=== PATIENT | male | born 1955 | race Caucasian/White ===

== ENCOUNTER 2016-07-08 21:35 | Emergency (ER) | payer MEDICARE, OTHER ==
[2016-07-08 21:52] VITALS: O2SAT 97
--- NOTE | 2016-07-08 22:41 | C.PDOC ---
History Of Present Illness A 61 y/o male presents to the ER c/o aching pain and swelling of the bilateral knees but does not know for how long. Pt notes his knees swells up and hurts for him to walk. Pt tried wearing knee braces but says it is tight and cuts off the circulation of his knees. Pt reports being in pain management and is taking pain medications for a herniated disk in his neck and back. Pt notes the swelling of his knees are there throughout the day with the pain is not getting much better when waking up in the morning. Pt denies fever, chills, weakness, numbness, trauma, nausea, vomiting, or any other complaints. Time Seen by Provider: 07/08/16 21:43 Chief Complaint (Nursing): Lower Extremity Problem/Injury History Per: Patient History/Exam Limitations: no limitations Onset/Duration Of Symptoms: Unknown Current Symptoms Are (Timing): Still Present Severity: Mild Recent travel outside of the [place]: No Additional History Per: Patient Past Medical History Reviewed: Historical Data, Nursing Documentation, Vital Signs Vital Signs: Last Vital Signs Temp 98.9 F 07/08/16 21:48 Pulse 96 H 07/08/16 21:48 Resp 16 07/08/16 21:48 BP 136/89 07/08/16 21:48 Pulse Ox 97 07/08/16 23:02 - Medical History PMH: Asthma, HTN, Peripheral Edema Family History: States: Unknown Family Hx - Social History Hx Alcohol Use: No Hx Substance Use: No - Immunization History Hx Tetanus Toxoid Vaccination: Yes Hx Influenza Vaccination: No Hx Pneumococcal Vaccination: No Review Of Systems Except As Marked, All Systems Reviewed And Found Negative. Constitutional: Negative for: Fever, Chills, Other (Injury. Fall) Gastrointestinal: Negative for: Nausea, Vomiting Musculoskeletal: Positive for: Leg Pain (Bilateral knee pain and swelling) Neurological: Negative for: Weakness, Numbness Physical Exam - Physical Exam Appears: Non-toxic, No Acute Distress Skin: Warm, Dry Head: Atraumatic, Normacephalic Eye(s): bilateral: Normal Inspection, EOMI Cardiovascular: Rhythm Regular, No Murmur Respiratory: Normal Breath Sounds, No Accessory Muscle Use, No Rales, No Rhonchi , No Wheezing Extremity: Normal ROM, Pedal Edema (Pretibial edema), Capillary Refill (<2secs) , No Deformity, Swelling (Mild swelling) Extremity: Bilateral: Normal Color And Temperature, Normal ROM Pulses: Left Dorsalis Pedis: Normal, Right Dorsalis Pedis: Normal Neurological/Psych: Oriented x3, Normal Speech, Normal Cognition, Normal Motor, Normal Sensation, Other (No focal deficit) Gait: Steady ED Course And Treatment - Laboratory Results Result Diagrams: 07/08/16 22:52 07/08/16 22:52 Lab Interpretation: No Acute Changes O2 Sat by Pulse Oximetry: 97 (RA) Pulse Ox Interpretation: Normal Reevaluation Time: 23:20 Reassessment Condition: Unchanged Medical Decision Making Medical Decision Making: Impression: 61 y/o c/o bilateral knee pain for an unknown durations Plans: -Blood labs -Reassess and disposition Pt is in no acute distress and is resting comfortably. Pt was instructed to follow up with PMD of symptoms persist. Disposition Counseled Patient/Family Regarding: Studies Performed, Diagnosis, Need For Followup, Rx Given - Disposition Referrals: Guerda Blevins MD [Staff Provider] - Disposition: HOME/ ROUTINE Disposition Time: 23:20 Condition: STABLE Prescriptions: Hydrochlorothiazide [Microzide] 12.5 mg PO DAILY #30 cap Instructions: Leg Edema (ED) - Clinical Impression Clinical Impression: Peripheral edema, Joint pain - Scribe Statement The provider has reviewed the documentation as recorded by the Scribe Erica zurita All medical record entries made by the Scribe were at my direction and personally dictated by me. I have reviewed the chart and agree that the record accurately reflects my personal performance of the history, physical exam, medical decision making, and the department course for this patient. I have also personally directed, reviewed, and agree with the discharge instructions and disposition.
[2016-07-08 22:56] LABS: BASO # 0.1 K/uL (0.0-0.2); BASO % 0.9 % (0.0-2.0); EOS # 0.1 K/uL (0.0-0.7); EOS % 1.7 % (0.0-4.0); HEMATOCRIT 41.3 % (35.0-51.0); LYMPH % 33.3 % (20.0-40.0); MEAN CELL VOLUME 87.3 fL (80.0-94.0); MEAN CORPUSCULAR HEMOGLOBIN 29.5 pg (27.0-31.0); MEAN CORPUSCULAR HGB CONC 33.7 g/dL (33.0-37.0); MEAN PLATELET VOLUME 7.1 fL (7.2-11.7); MONO # 0.5 K/uL (0.0-0.8); MONO % 8.2 % (0.0-10.0); NRBC % 0.1 % (0.0-2.0); RED CELL DISTRIBUTION WIDTH 13.6 % (11.5-14.5); WHITE BLOOD COUNT 5.9 K/uL (4.8-10.8)
[2016-07-08 23:04] LABS: CHLORIDE 100 mmol/L (98-107); SODIUM 137 mmol/L (132-148)
[2016-07-08 23:05] LABS: POTASSIUM 5.6 mmol/L (3.6-5.2)
[2016-07-08 23:06] LABS: BILIRUBIN,TOTAL 1.5 mg/dL (0.2-1.3); GFR AFRICAN-AMERICAN > 60
[2016-07-08 23:07] LABS: ALB/GLOB RATIO 1.1 (1.0-2.1); ALKALINE PHOSPHATASE 39 U/L (38-126); ALT/SGPT 23 U/L (21-72); AST/SGOT 43 U/L (17-59); BLOOD UREA NITROGEN 18 mg/dL (9-20); CARBON DIOXIDE 26 mmol/L (22-30); GLUCOSE,RANDOM 95 mg/dL (75-110); TOTAL PROTEIN 8.1 g/dL (6.3-8.3)
[2016-07-08 23:08] LABS: CALCIUM 8.9 mg/dl (8.6-10.4)
[2016-07-08 23:32] VITALS: BP 129/86; PULSE 88; RESP 18; TEMP 98.3
== END 2016-07-08 23:32 | disposition home or self-care (01) ==
LOC: C.ER 21:35
DX: R60.0 Localized edema (principal); M25.562 Pain in left knee; M25.561 Pain in right knee

== ENCOUNTER 2017-03-18 16:38 | Inpatient (IN) | payer MEDICARE ==
[2017-03-18 17:27] VITALS: BMI 32.8
[2017-03-18] MEDS ORDERED: Sodium Chloride 0.9% 1,000 ML IV ONE ×2 (18:51→21:19)
[2017-03-18] MEDS ORDERED: Piperacillin/Tazobact 3.375 gm 100 ML IV STA (18:52)
[2017-03-18] MEDS ORDERED: MethylPREDNISolone 40 mg Vial IVP STA (18:53)
--- NOTE | 2017-03-18 19:10 | C.PDOC ---
History Of Present Illness 62 y/o male, with history of diabetes, presents to the ER complaining of mild pain and swelling in the right eye which has been gradually developing over the past 2 days. Patient states that the pain started after he rubbed his eyes with dirty hands. Patient denies having any headache, fever, dizziness, blurry vision , foreign body sensation, and contact lenses. Time Seen by Provider: 03/18/17 18:41 Chief Complaint (Nursing): ENT Problem History Per: Patient History/Exam Limitations: no limitations Onset/Duration Of Symptoms: Days Current Symptoms Are (Timing): Still Present Severity: Moderate Past Medical History Reviewed: Historical Data, Nursing Documentation, Vital Signs Vital Signs: Last Vital Signs Temp 99 F 03/18/17 20:25 Pulse 78 03/18/17 20:25 Resp 18 03/18/17 20:25 BP 158/101 H 03/18/17 20:25 Pulse Ox 99 03/18/17 20:25 - Medical History PMH: Asthma, HTN, Peripheral Edema Surgical History: No Surg Hx Family History: States: No Known Family Hx - Social History Hx Alcohol Use: No Hx Substance Use: No - Immunization History Hx Tetanus Toxoid Vaccination: Yes Hx Influenza Vaccination: No Hx Pneumococcal Vaccination: No Review Of Systems Except As Marked, All Systems Reviewed And Found Negative. Constitutional: Negative for: Fever, Chills Eyes: Positive for: Pain (right eye pain). Negative for: Vision Change Respiratory: Negative for: Cough Neurological: Negative for: Headache, Dizziness Physical Exam - Physical Exam Appears: Non-toxic, No Acute Distress Skin: Normal Color, Warm Head: Normacephalic Eye(s): bilateral: PERRL, EOMI (no pain or limitation on extraocular movement), right: Other (mild conjunctival injection, scant yellow discharge, diffuse periorbital edema and erythema) Nose: No Flaring, No Discharge Oral Mucosa: Moist, No Drooling Tongue: Normal Appearing Lips: Normal Appearing Throat: No Erythema, No Drooling Neck: Trachea Midline, Supple Chest: Symmetrical Cardiovascular: Rhythm Regular Respiratory: No Decreased Breath Sounds, No Accessory Muscle Use, No Rales, No Rhonchi, No Stridor, No Wheezing Gastrointestinal/Abdominal: Soft, No Tenderness Extremity: Normal ROM, No Pedal Edema, No Deformity Neurological/Psych: Oriented x3, Normal Speech, Normal Cognition, Normal Motor, Normal Sensation ED Course And Treatment - Laboratory Results Result Diagrams: 03/18/17 19:22 03/18/17 19:22 Lab Interpretation: No Acute Changes O2 Sat by Pulse Oximetry: 97 (RA) Pulse Ox Interpretation: Normal Progress Note: Case discussed with and admission recommend. Case dsicussed with DR. Blevins and admission arranged. CT orbit request now. OPht consult requested and order with . Results review nad discussed with pt, agrees with plan. Disposition - Disposition Disposition: HOSPITALIZED Disposition Time: 20:02 Condition: STABLE Forms: [employer] ([place]ish) - Clinical Impression Clinical Impression: Periorbital cellulitis of right eye, Facial cellulitis - PA / SENIOR STRATEGY ANALYST / Resident Statement MD/DO has reviewed & agrees with the documentation as recorded. - Scribe Statement The provider has reviewed the documentation as recorded by the Scribe Leonor Cuadra Provider Attestation All medical record entries made by the Scribe were at my direction and personally dictated by me. I have reviewed the chart and agree that the record accurately reflects my personal performance of the history, physical exam, medical decision making, and the department course for this patient. I have also personally directed, reviewed, and agree with the discharge instructions and disposition.
[2017-03-18] MEDS ORDERED: Sodium Chloride 0.9% 1,000 ML ONE ×2 (19:11→21:25)
[2017-03-18] MEDS ORDERED: MethylPREDNISolone 40 mg Vial ONE (19:11)
[2017-03-18 19:27] LABS: BASO % 0.4 % (0.0-2.0); EOS % 0.6 % (0.0-4.0); LYMPH # 1.4 K/uL (1.0-4.3); LYMPH % 16.5 % (20.0-40.0); MEAN CELL VOLUME 86.7 fL (80.0-94.0); MEAN CORPUSCULAR HEMOGLOBIN 29.5 pg (27.0-31.0); MEAN PLATELET VOLUME 7.5 fL (7.2-11.7); MONO # 0.9 K/uL (0.0-0.8); MONO % 10.2 % (0.0-10.0); NEUT % 72.3 % (50.0-75.0); NRBC % 0.1 % (0.0-2.0); RBC 5.08 Mil/uL (4.40-5.90); RED CELL DISTRIBUTION WIDTH 13.4 % (11.5-14.5); WHITE BLOOD COUNT 8.3 K/uL (4.8-10.8)
[2017-03-18 19:40] LABS: BLOOD UREA NITROGEN 13 mg/dL (9-20); CALCIUM 8.9 mg/dl (8.6-10.4); GFR AFRICAN-AMERICAN > 60; GFR NON-AFRICAN AMERICAN > 60
[2017-03-18] MEDS ORDERED: Tobramycin/Dexamethasone OPHT OINT OD STA (21:17)
[2017-03-18] MEDS ORDERED: Tobramycin 0.3% OPH OINT ONE (21:25)
--- NOTE | 2017-03-18 22:26 | CT ---
EXAM: CT Orbits Without Intravenous Contrast CLINICAL HISTORY: 62 years old, male; Condition or disease; Cellulitis; Eye; Right; Additional info: Right eye pain, swleling TECHNIQUE: Axial computed tomography images of the orbits without intravenous contrast. All CT scans at this facility use one or more dose reduction techniques, viz.: automated exposure control; ma/kV adjustment per patient size (including targeted exams where dose is matched to indication; i.e. head); or iterative reconstruction technique. Coronal and sagittal reformatted images were created and reviewed. COMPARISON: No relevant prior studies available. FINDINGS: Limitations: Limited evaluation for abscess due to lack of intravenous contrast. Orbits: Unremarkable as visualized. Sinuses: Scattered mild mucosal thickening. No air-fluid levels. Bones/joints: Degenerative changes of cervical spine. No acute fracture. Postsurgical changes of right facial bones. Soft tissues: RIGHT periorbital/maxillary soft tissue swelling. Dermal calcifications. Dental: Dental caries. IMPRESSION: 1. Findings compatible with cellulitis. 2. Incidental/non-acute findings are described above.
[2017-03-19 01:44] VITALS: RESP 20
[2017-03-19] MEDS ORDERED: oxyCODONE 30 mg Immediate Release Tab PO PRN (06:31)
[2017-03-19] MEDS: Tobramycin 0.3% OPHT SOLN OD SCH ×2 (09:55→17:48)
[2017-03-19] MEDS ORDERED: Home Med 1 UNIT (Oxycodone Hcl/Acetaminophen [Percocet 10-325 Mg Tablet] 1 EACH) PO SCH (10:00)
--- NOTE | 2017-03-19 11:02 | CP.PCM.HP ---
History of Present Illness - History of Present Illness History of Present Illness: r eye swalen closed hurts Present on Admission - Present on Admission Any Indicators Present on Admission: Yes Review of Systems - Review of Systems Systems not reviewed;Unavailable: Acuity of Condition - Constitutional Constitutional: As Per HPI - EENT Eyes: Blurred Vision, Discharge, Itchy Eyes, Pain, Other Ears: As Per HPI Nose/Mouth/Throat: As Per HPI - Gastrointestinal Gastrointestinal: As Per HPI - Genitourinary Genitourinary: As Per HPI - Reproductive: Male Reproductive:Male: As Per HPI - Musculoskeletal Musculoskeletal: Back Pain - Integumentary Integumentary: As Per HPI - Neurological Neurological: As Per HPI - Psychiatric Psychiatric: As Per HPI - Endocrine Endocrine: As Per HPI - Hematologic/Lymphatic Hematologic: As Per HPI Past Patient History - Past Social History Smoking Status: Light Smoker < 10 Cigarettes Daily - CARDIAC Hx Hypertension: Yes Hx Peripheral Edema: Yes - PULMONARY Hx Asthma: Yes - ENDOCRINE/METABOLIC Hx Diabetes Mellitus Type 2: Yes - PSYCHIATRIC Hx Substance Use: No - SURGICAL HISTORY Hx Surgeries: No - ANESTHESIA Hx Anesthesia: No Meds Allergies/Adverse Reactions: Allergies Allergy/AdvReac Type Severity Reaction Status Date / Time No Known Allergies Allergy Verified 03/18/17 17:25 Physical Exam - Constitutional Appears: Non-toxic, In Acute Distress - Head Exam Head Exam: ATRAUMATIC - Eye Exam Eye Exam: Conjunctival injection Additional comments: swalen and closed r eyelid - ENT Exam ENT Exam: Mucous Membranes Dry - Neck Exam Neck exam: Positive for: Full Rom - Respiratory Exam Respiratory Exam: Clear to Auscultation Bilateral - Cardiovascular Exam Cardiovascular Exam: REGULAR RHYTHM - GI/Abdominal Exam GI & Abdominal Exam: Normal Bowel Sounds - Rectal Exam Rectal Exam: NORMAL INSPECTION - Exam Exam: NORMAL INSPECTION - Extremities Exam Extremities exam: Positive for: normal inspection - Back Exam Back exam: NORMAL INSPECTION - Neurological Exam Neurological exam: Normal Gait, Oriented x3 - Psychiatric Exam Psychiatric exam: Normal Affect - Skin Skin Exam: Normal Color Results - Vital Signs Recent Vital Signs: Last Vital Signs Temp 97.9 F 03/19/17 07:51 Pulse 78 03/19/17 07:51 Resp 20 03/19/17 07:51 BP 138/88 03/19/17 07:51 Pulse Ox 97 03/19/17 07:51 - Labs Result Diagrams: 03/18/17 19:22 03/18/17 19:22 Labs: Laboratory Results - last 24 hr 03/18/17 03/18/17 03/18/17 18:49 19:22 19:22 WBC 8.3 RBC 5.08 Hgb 15.0 Hct 44.0 MCV 86.7 MCH 29.5 MCHC 34.0 RDW 13.4 Plt Count 272 MPV 7.5 Neut % (Auto) 72.3 Lymph % (Auto) 16.5 L [place] % (Auto) 10.2 H Eos % (Auto) 0.6 Baso % (Auto) 0.4 Neut # 6.0 Lymph # 1.4 [place] # 0.9 H Eos # 0.0 Baso # 0.0 Sodium 130 L Potassium 4.0 Chloride 92 L Carbon Dioxide 31 H Anion Gap 11 BUN 13 Creatinine 1.0 Est GFR ( Amer) > 60 Est GFR (Non-Af Amer) > 60 POC Glucose (mg/dL) 90 Random Glucose 96 Calcium 8.9 03/19/17 07:06 WBC RBC Hgb Hct MCV MCH MCHC RDW Plt Count MPV Neut % (Auto) Lymph % (Auto) [place] % (Auto) Eos % (Auto) Baso % (Auto) Neut # Lymph # [place] # Eos # Baso # Sodium Potassium Chloride Carbon Dioxide Anion Gap BUN Creatinine Est GFR ( Amer) Est GFR (Non-Af Amer) POC Glucose (mg/dL) 133 H Random Glucose Calcium Assessment & Plan - Assessment and Plan (Free Text) Assessment: acute infection r eye back pain Plan: as per orders - Date & Time Date: 03/19/17 Time: 11:04
[2017-03-19 12:18] LABS: BASO # 0.1 K/uL (0.0-0.2); BASO % 0.4 % (0.0-2.0); HEMOGLOBIN 14.9 g/dL (12.0-18.0); MEAN CELL VOLUME 87.6 fL (80.0-94.0); MEAN CORPUSCULAR HEMOGLOBIN 30.2 pg (27.0-31.0); MEAN CORPUSCULAR HGB CONC 34.5 g/dL (33.0-37.0); MEAN PLATELET VOLUME 7.8 fL (7.2-11.7); MONO # 0.6 K/uL (0.0-0.8); MONO % 4.1 % (0.0-10.0); NEUT % 88.5 % (50.0-75.0); PLATELET COUNT 280 K/uL (130-400); RBC 4.94 Mil/uL (4.40-5.90); RED CELL DISTRIBUTION WIDTH 13.4 % (11.5-14.5)
[2017-03-19] MEDS: Piperacillin/Tazobact 3.375 GM in Sodium Chloride 0.9% 100 ML IVPB SCH ×2 (12:23→17:52)
[2017-03-19 12:27] LABS: WHITE BLOOD COUNT 14.7 K/uL (4.8-10.8)
[2017-03-19 12:54] LABS: BLOOD UREA NITROGEN 17 mg/dL (9-20); CALCIUM 9.4 mg/dl (8.6-10.4); GFR AFRICAN-AMERICAN > 60; GFR NON-AFRICAN AMERICAN > 60
[2017-03-19 13:40] LABS: BANDS 2 % (0-2); LYMPHOCYTE 8 % (20-40); MONOCYTE 3 % (0-10); NEUTROPHIL 87 % (50-75); PLATELET ESTIMATE NORMAL (NORMAL); TOTAL CELLS COUNTED 100
[2017-03-20] MEDS: Piperacillin/Tazobact 3.375 GM in Sodium Chloride 0.9% 100 ML IVPB SCH ×3 (00:15→11:33)
[2017-03-20 08:24] LABS: BASO % 0.4 % (0.0-2.0); EOS % 0.1 % (0.0-4.0); HEMOGLOBIN 13.6 g/dL (12.0-18.0); LYMPH # 2.1 K/uL (1.0-4.3); MEAN CELL VOLUME 88.1 fL (80.0-94.0); MEAN CORPUSCULAR HEMOGLOBIN 30.3 pg (27.0-31.0); MEAN CORPUSCULAR HGB CONC 34.3 g/dL (33.0-37.0); MEAN PLATELET VOLUME 7.6 fL (7.2-11.7); MONO # 0.7 K/uL (0.0-0.8); MONO % 5.9 % (0.0-10.0); NEUT # 8.4 K/uL (1.8-7.0); NEUT % 74.6 % (50.0-75.0); RBC 4.49 Mil/uL (4.40-5.90); RED CELL DISTRIBUTION WIDTH 13.5 % (11.5-14.5); WHITE BLOOD COUNT 11.3 K/uL (4.8-10.8)
[2017-03-20] MEDS: Tobramycin 0.3% OPHT SOLN OD SCH ×2 (09:30→17:52)
--- NOTE | 2017-03-20 12:39 | CP.PCM.PN ---
Subjective - Date & Time of Evaluation Date of Evaluation: 03/20/17 Time of Evaluation: 12:36 - Subjective Subjective: swelling of eyelid is beterwbc still high has celullitis of the eye Objective - Vital Signs/Intake and Output Vital Signs (last 24 hours): Temp Pulse Resp BP Pulse Ox 97.8 F 79 20 146/102 H 98 03/20/17 08:45 03/20/17 08:45 03/20/17 08:45 03/20/17 08:45 03/20/17 08:45 Intake and Output: 03/20/17 03/20/17 06:59 18:59 Intake Total 500 440 Balance 500 440 - Medications Medications: Current Medications Alprazolam (Xanax) 0.5 mg PO TID PRN PRN Reason: Anxiety Last Admin: 03/20/17 09:29 Dose: 0.5 mg Clonidine HCl (Catapres) 0.3 mg PO BID [facility] Last Admin: 03/20/17 09:28 Dose: 0.3 mg Clopidogrel Bisulfate (Plavix) 75 mg PO DAILY [facility] Last Admin: 03/20/17 09:29 Dose: 75 mg Heparin Sodium (Porcine) (Heparin) 5,000 units SC Q12 [facility] Last Admin: 03/20/17 09:29 Dose: 5,000 units Hydrochlorothiazide (Microzide) 12.5 mg PO DAILY [facility] Last Admin: 03/20/17 09:29 Dose: 12.5 mg Piperacillin Sod/Tazobactam (Sod 3.375 gm/ Sodium Chloride) 100 mls @ 100 mls/ hr IVPB Q6H [facility] Stop: 03/20/17 15:00 Last Admin: 03/20/17 11:33 Dose: 100 mls/hr Piperacillin Sod/Tazobactam Sod (Zosyn 3.375 Gm Iv Premix) 3.375 gm in 50 mls @ 100 mls/hr IVPB Q6H [facility] Metformin HCl (Glucophage) 500 mg PO BID [facility] Last Admin: 03/20/17 09:29 Dose: 500 mg Oxycodone HCl (Oxycodone Immediate Release Tab) 30 mg PO Q8 PRN PRN Reason: Pain, moderate (4-7) Pneumococcal Polyvalent Vaccine (Pneumovax 23 Vaccine) 0.5 ml IM .ONCE ONE Stop: 03/21/17 10:01 Tobramycin Sulfate (Tobrex 0.3% Ophth Soln) 1 drop OD BID [facility] Last Admin: 03/20/17 09:30 Dose: 1 drop - Labs Labs: 03/20/17 08:06 03/19/17 12:03 - Constitutional Appears: Non-toxic - Head Exam Head Exam: NORMAL INSPECTION - Eye Exam Eye Exam: Conjunctival injection, Periorbital swelling - Neck Exam Neck Exam: Normal Inspection - Respiratory Exam Respiratory Exam: Clear to Ausculation Bilateral - Cardiovascular Exam Cardiovascular Exam: REGULAR RHYTHM - GI/Abdominal Exam GI & Abdominal Exam: Normal Bowel Sounds - Rectal Exam Rectal Exam: NORMAL INSPECTION - Extremities Exam Extremities Exam: Normal Capillary Refill - Neurological Exam Neurological Exam: Normal Gait - Psychiatric Exam Psychiatric exam: Normal Mood - Skin Skin Exam: Dry, Normal Color Assessment and Plan - Assessment and Plan (Free Text) Assessment: acute celulitis back pain djdd Plan: cont iv antibiotic and all ordres
[2017-03-20] MEDS: Piperacill/Tazo 3.375gm in Dex 3.375 GM/50 ML BAG IVPB SCH (17:54)
[2017-03-21] MEDS: Piperacill/Tazo 3.375gm in Dex 3.375 GM/50 ML BAG IVPB SCH ×3 (00:26→12:05)
[2017-03-21] MEDS: Tobramycin 0.3% OPHT SOLN OD SCH (09:21)
[2017-03-21] MEDS ORDERED: Pneumococcal 23-Valent Vaccine IM ONE (10:00)
[2017-03-21] MEDS ORDERED: Influenza Vaccine 60 mcg/0.5 mL SYR (4YR UP) IM ONE (10:00)
[2017-03-21 15:46] VITALS: BP 120/79; PULSE 65; TEMP 97.5; O2SAT 98
--- NOTE | 2017-03-21 17:36 | CP.PCM.PN ---
Subjective - Date & Time of Evaluation Date of Evaluation: 03/21/17 Time of Evaluation: 09:00 - Subjective Subjective: Alert, orientedx3, decreased orbital swelling and pain, NAD. Objective - Vital Signs/Intake and Output Vital Signs (last 24 hours): Temp Pulse Resp BP Pulse Ox 97.5 F L 65 20 120/79 98 03/21/17 15:00 03/21/17 15:00 03/21/17 15:00 03/21/17 15:00 03/21/17 15:00 Intake and Output: 03/21/17 03/21/17 06:59 18:59 Intake Total 790 850 Balance 790 850 - Labs Labs: 03/20/17 08:06 03/19/17 12:03 Assessment and Plan - Assessment and Plan (Free Text) Assessment: Patient is seen and examined. Alert and orientedx3, right orbital swelling reduced much. Denies any pain. Discussed with DR Blevins, plan to discharge home on oral antibiotics for 5 more days. Advised to follow up with PMD in 1 week.
== END 2017-03-21 16:36 | disposition home or self-care (01) | DRG 603 ==
LOC: C.ER 16:38 → C.9E 20:15 → C.3T 20:15 → OBSVTOIN 03-19 11:12
PROVIDERS: ADMIT Internal Medicine; ATTEND Internal Medicine
DX: L03.213 Periorbital cellulitis (principal); L03.211 Cellulitis of face; E11.9 Type 2 diabetes mellitus without complications; I10 Essential (primary) hypertension; J45.909 Unspecified asthma, uncomplicated; F17.210 Nicotine dependence, cigarettes, uncomplicated